=== PATIENT | male | born 2000 | race Caucasian/White ===

== ENCOUNTER 2022-08-29 10:12 | Emergency (ER) | payer OTHER, SELFPAY ==
[2022-08-29 10:26] VITALS: BP 122/72; PULSE 68; RESP 20; TEMP 36.6; O2SAT 100
--- NOTE | 2022-08-29 10:40 | ED.URI ---
HPI - URI/Sore Throat General Chief Complaint: Upper Respiratory Infection Stated Complaint: sore throat, bumps on back of tongue Time Seen by Provider: 08/29/22 10:30 Source: patient Mode of arrival: ambulatory Limitations: no limitations History of Present Illness HPI Narrative: Patient presents today complaining of a one-week history of sore throat with nasal congestion. States there are bumps on his posterior tongue that are painful as well. Denies fever, cough, or any additional symptoms. Patient took a dose of ibuprofen last week, but no other [id number] treatments since that time. Related Data Home Medications Medication Instructions Recorded Confirmed No Home Medications 08/29/22 08/29/22 Allergies Allergy/AdvReac Type Severity Reaction Status Date / Time amoxicillin [From Augmentin] Allergy Redness of Verified 08/29/22 10:33 Skin clavulanic acid Allergy Redness of Verified 08/29/22 10:33 [From Augmentin] Skin Review of Systems Review of Systems: CONSTITUTIONAL: Denies body aches, fever, chills, or sweats. EYES: Denies visual changes, redness, or discharge. ENT: Denies rhinorrhea, or otalgia.+ sore throat, congestion CARDIOVASCULAR: Denies chest pain, palpitations, or edema. RESPIRATORY: Denies cough or dyspnea. GASTROINTESTINAL: Denies abdominal pain, nausea, vomiting, or diarrhea. GENITOURINARY: Denies dysuria or hematuria. SKIN: Denies rash, itching, or wounds. MUSCULOSKELETAL: Denies back pain, joint pain, or myalgia. NEUROLOGIC: Denies headache, numbness, tingling, or weakness. PSYCH: Denies depression or anxiety. PMFSH Comments At time of signature, I have reviewed and agree with nursing past medical, surgical, social and family history unless otherwise noted. Please see nursing chart for further information. There is no relevant family history pertinent to the presenting complaint Exam Narrative: GENERAL: Well-appearing, well-nourished, and in no acute distress. HEAD: Normocephalic, atraumatic. EYES: EOMI. No redness or drainage. Conjunctivae normal. ENT: Mucous membranes pink and moist. Nares clear. No rhinorrhea. TMs normal bilaterally. Throat mildly erythematous without edema or exudate. Patient has a few slightly inflamed taste buds on the posterior tongue. Uvula midline. NECK: Normal AROM. Supple. No lymphadenopathy. CHEST: No respiratory distress. Clear to auscultation. HEART: Regular rate and rhythm. No murmur appreciated. Normal peripheral pulses. EXTREMITIES: Normal range of motion. No edema. SKIN: Warm, dry, no rash. Capillary refill normal. Normal skin turgor. NEURO: No focal deficits. Alert and oriented x3. Gait steady. PSYCH: Normal affect. No signs of depression or anxiety. Course Course Level of Care: Express Care Visit Vital Signs Vital signs: Vital Signs Temperature 97.9 F 08/29/22 10:26 Pulse Rate 68 08/29/22 10:26 Respiratory Rate 20 08/29/22 10:26 Blood Pressure 122/72 08/29/22 10:26 Pulse Oximetry 100 08/29/22 10:26 Temperature 97.9 F 08/29/22 10:26 Pulse Rate 68 08/29/22 10:26 Respiratory Rate 20 08/29/22 10:26 Blood Pressure 122/72 08/29/22 10:26 Pulse Oximetry 100 08/29/22 10:26 Reviewed. Pt has been instructed to follow up with his PCP regarding his elevated blood pressure today. MDM - URI/Sore Throat MDM Narrative Medical decision making narrative: Patient's symptoms are consistent with viral syndrome. He has a few inflamed papillae as well. Anticipatory guidance given. No prescriptions indicated at this time. Differential Diagnosis Differential diagnosis: Likely upper respiratory infection, viral infection, pharyngitis and other (Strep throat, papilitis) Lab Data Attestation: I reviewed the patient's lab results. Labs: Strep Screen Presumptive Negative *(Reference Range: Negative)* Critical Care Time Critical Care Time
== END 2022-08-29 10:50 | disposition home or self-care (01) ==
PROVIDERS: Emergency Provider Nurse Practitioner
DX: J06.9 Acute upper respiratory infection, unspecified (principal)
CPT/HCPCS: 87081; 87880; 99213; G0463